=== PATIENT | male | born 1960 | race African-American/Black ===

== ENCOUNTER 2019-04-15 07:58 | Inpatient (IN) ==
[2019-04-05 12:38] LABS: Basophils # (Auto) 0 K/mcL (0.0-0.3); Basophils % (Auto) 0.6 % (0.0-2.0); Eosinophils # (Auto) 0.2 K/mcL (0.0-0.7); Eosinophils % (Auto) 2.1 % (0.0-7.0); Granulocytes % (Auto) 65.1 % (38.0-78.0); Hematocrit 41.5 % (41.0-55.0); Hemoglobin 13.2 g/dL (13.5-16.5); Lymphocytes # (Auto) 2.2 K/mcL (1.5-4.8); Lymphocytes % (Auto) 26.4 % (15.5-49.0); Mean Cell Volume 85.3 fL (80.0-100.0); Mean Corpuscular HGB Conc 31.8 g/dL (31.0-36.0); Mean Platelet Volume 8.9 fL (7.4-10.4); Monocytes # (Auto) 0.5 K/mcL (0.1-0.9); Monocytes % (Auto) 5.8 % (1.0-12.0); Platelet Count 303 K/mcL (140-440); RBC 4.87 M/mcL (4.50-5.90); Red Cell Distribution Width 13.8 % (11.5-14.5); WBC 8.4 K/mcL (4.5-11.0)
[2019-04-05 12:41] LABS: Blood Urea Nitrogen 23 mg/dl (6-20); Calcium 9.4 mg/dl (8.6-10.4); Carbon Dioxide 29 mmol/L (22-30); Chloride 99 mmol/L (96-108); Glomerular Filtration Rate 74; Glucose 126 mg/dL (70-105); Sodium 140 mmol/L (133-145)
[2019-04-05 13:25] LABS: Appearance,Urine CLEAR; Bilirubin,Urine NEG (NEG); Color,Urine YELLOW; Culture Indicated,Urine NO; Glucose,Urine (UA) NEGATIVE (NEG); Ketones,Urine NEG (NEG); Leukocyte Esterase,Urine NEG /uL (NEG); Nitrate,Urine NEG (NEG); Protein,Urine NEG (NEG); Urine Blood NEG mg/dL (<0.03); Urobilinogen,Urine NEG (NEG)
[~2019-04-15 07:58] MED LIST: 0.9 % SODIUM CHLORIDE 9 ML, KETOROLAC 30 MG, ROPIVACAINE HCL/PF 49.5 ML, EPINEPHrine 0.... IJ SCH; ceFAZolin 3 GM in DEXTROSE 5% IN WATER 50 ML IV SCH
[2019-04-15] MEDS ORDERED: GENTAMICIN SULFATE 800 MG/20 ML VIAL IR ONE (09:43)
[2019-04-15] MEDS ORDERED: DEXAMETHASONE 10 MG/ML VIAL IV ONE (12:05)
[2019-04-15] MEDS ORDERED: GLYCOPYRROLATE 0.2 MG/ML VIAL IV ONE (12:05)
[2019-04-15] MEDS ORDERED: PROPOFOL 200 MG/20 ML VIAL IV ONE (12:05)
[2019-04-15] MEDS ORDERED: ONDANSETRON 4 MG/2 ML VIAL IV ONE (12:05)
[2019-04-15] MEDS ORDERED: ROPIVACAINE HCL/PF 30 ML VIAL IJ ONE (12:05)
[2019-04-15] MEDS ORDERED: LIDOCAINE HCL/PF 100 MG/5 ML SYRINGE IV ONE (12:05)
[2019-04-15] MEDS ORDERED: MIDAZOLAM 5 MG/5 ML VIAL IV ONE (12:05)
[2019-04-15] MEDS ORDERED: KETAMINE 100 MG/ML ML IV ONE (12:05)
[2019-04-15] MEDS ORDERED: PHENYLEPHRINE 10 MG/ML VIAL IV ONE (12:05)
[2019-04-15] MEDS ORDERED: TRANEXAMIC ACID 1,000 MG/10 ML VIAL IV ONE ×2 (12:05→14:05)
[2019-04-15] MEDS ORDERED: FLEETS ADULT ENEMA PR PRN (14:05)
[2019-04-15] MEDS ORDERED: MAGNESIUM HYDROXIDE 30 ML ORAL.SUSP PO PRN (14:05)
[2019-04-15] MEDS ORDERED: BENZOCAINE/MENTHOL 1 LOZENGE PO PRN (14:05)
[2019-04-15] MEDS ORDERED: BISACODYL 10 MG SUPP.RECT PR PRN (14:05)
[2019-04-15] MEDS ORDERED: POLYETHYLENE GLYCOL 3350 17 GM PACKET PO PRN (14:05)
[2019-04-15] MEDS ORDERED: ONDANSETRON 4 MG/2 ML VIAL IV PRN ×2 (14:05→14:08)
[2019-04-15] MEDS ORDERED: MEPERIDINE 25 MG/ML SYRINGE IV PRN (14:08)
[2019-04-15] MEDS ORDERED: ACETAMINOPHEN 1,000 MG/100 ML BOTTLE IV ONE (14:08)
[2019-04-15] MEDS ORDERED: HYDROcodone/APAP 10/325MG TABLET PO PRN ×2 (14:08→18:33)
[2019-04-15] MEDS ORDERED: METHOCARBAMOL 1,000 MG/10 ML VIAL IV PRN (14:08)
[2019-04-15] MEDS ORDERED: ePHEDrine 50 MG/ML AMPUL IV PRN (14:08)
[2019-04-15] MEDS ORDERED: IPRATROPIUM/ALBUTEROL 3 ML AMPUL.NEB NEB PRN (14:08)
--- NOTE | 2019-04-15 14:14 | Brief Operative Note ---
Date of procedure: 04/15/19 Pre-op diagnosis: djd left knee Post-op diagnosis: same Procedure: L TKR Grafts/Implants: Yes (triathlon knee replacement) Anesthesia: ANNA Surgeon: Ry Jalloh Superintendent House: [facility] Estimated blood loss (cc): 100 Tourniquet Time (Minutes): 90 Specimens Removed/Pathology: none sent Condition: stable Disposition: PACU
[2019-04-15] MEDS ORDERED: LACTATED RINGERS 1,000 ML IV SCH (14:15)
[2019-04-15] MEDS: fentaNYL 100 MCG/2 ML VIAL IV PRN ×4 (15:17→15:25)
[2019-04-15] MEDS: 0.9 % SODIUM CHLORIDE 1,000 ML IV SCH (15:48)
--- NOTE | 2019-04-15 16:34 | XRay Report ---
HISTORY: Postop left knee replacement FINDINGS: Patient has a well positioned total knee prosthesis. There is no fracture. Lateral to the lateral joint compartment there is a soft tissue calcification which measures 6.6 mm. No donor site is seen. IMPRESSION: Well-positioned left knee prosthesis Interpreted and Authenticated by: Gordy Evangelista 04/15/19
[2019-04-15] MEDS: HYDROcodone/APAP 10/325MG TABLET PO PRN (17:58)
[2019-04-15] MEDS: ceFAZolin 1 GM VIAL IV SCH (18:50)
[2019-04-15] MEDS: CYCLOBENZAPRINE 10 MG TABLET PO PRN (19:03)
[2019-04-15] MEDS: ASPIRIN 81 MG TAB.CHEW PO SCH (20:51)
[2019-04-15] MEDS: DOCUSATE SODIUM 100 MG CAPSULE PO SCH (20:51)
[2019-04-15] MEDS ORDERED: SENNOSIDES 1 TABLET PO SCH (21:00)
[2019-04-15] MEDS: 0.9 % SODIUM CHLORIDE 10 ML SYRINGE IV SCH (23:31)
[2019-04-16] MEDS: HYDROcodone/APAP 10/325MG TABLET PO PRN ×4 (00:08→11:56)
[2019-04-16] MEDS: ceFAZolin 1 GM VIAL IV SCH (02:42)
[2019-04-16] MEDS: 0.9 % SODIUM CHLORIDE 1,000 ML IV SCH (04:09)
[2019-04-16 05:53] LABS: Basophils # (Auto) 0 K/mcL (0.0-0.3); Basophils % (Auto) 0.2 % (0.0-2.0); Eosinophils # (Auto) 0 K/mcL (0.0-0.7); Eosinophils % (Auto) 0.1 % (0.0-7.0); Hematocrit 37.6 % (41.0-55.0); Hemoglobin 12.2 g/dL (13.5-16.5); Lymphocytes # (Auto) 1.8 K/mcL (1.5-4.8); Mean Cell Volume 85.2 fL (80.0-100.0); Mean Corpuscular HGB Conc 32.6 g/dL (31.0-36.0); Mean Platelet Volume 8.9 fL (7.4-10.4); Monocytes # (Auto) 0.9 K/mcL (0.1-0.9); Monocytes % (Auto) 5.7 % (1.0-12.0); Platelet Count 290 K/mcL (140-440); RBC 4.41 M/mcL (4.50-5.90); Red Cell Distribution Width 13.5 % (11.5-14.5)
[2019-04-16] MEDS: 0.9 % SODIUM CHLORIDE 10 ML SYRINGE IV SCH (06:29)
[2019-04-16] MEDS: CYCLOBENZAPRINE 10 MG TABLET PO PRN (07:04)
[2019-04-16] MEDS ORDERED: FERROUS SULFATE 325 MG TABLET PO SCH (08:00)
[2019-04-16] MEDS: ASPIRIN 81 MG TAB.CHEW PO SCH (08:13)
[2019-04-16] MEDS: DOCUSATE SODIUM 100 MG CAPSULE PO SCH (08:14)
--- NOTE | 2019-04-16 08:21 | Discharge Summary ---
Providers - Providers Patient information: Note initiated : 04/16/19 at 8:18 am Service Date, if different from initiated Date: [] Patient: Daniel Dickson 58 y/o M admitted on 04/15/19 for Left Robotic Total Knee Arthroplasty. Chief Complaint: [] Discharge date: 04/16/19 Hospitalization Hospital course: Patient was admitted after surgery for post op pain control and PT. He was unhappy with this pain control but otherwise did very well and had no com plications. He will discharge today on POD 1. Discharge diagnosis: left total knee arthroplasty Exam - Exam Incision healing: Yes Weight bearing status: full Range of motion: 3-90 Ortho Discharge - TKA - Patient Instructions Diet: Regular Diet Activity: activity as tolerated Total Knee Protocol: For Total Knee: Start ROM LISA with stationary bike or rocking chair. Work on gaining full extension of knee. Posterior dislocation precautions provided. Hip abductor strengthening and gait training instructions provided. Apply Cryocuff as instructed. Dressing Care: May shower in 2 days - Follow Up Plan Disposition: Home, Self-Care Prognosis: Good Rehab Potential: Good I certify that the patient requires SNF services: No Overall status at discharge: patient is progressing back to baseline - Orders For Discharge Prescriptions: Aspirin [Aspirin EC] 325 mg PO BID #60 tablet. Cyclobenzaprine [Flexeril] 10 mg PO TID #60 tab HYDROcodone/APAP 10/325MG [[place]on 10-325Mg] 1 tab PO Q4H PRN #90 tab PRN Reason: Pain Pending Studies Resuscitation Status Full Code Diet Regular Diet Start Em April 15 Dinner Hydrocodone Bitart/Acetaminophen ([place] 10/325mg) 0 tab PO Q4HP PRN PRN Reason: PAIN LEVEL 3-6 Last Admin: 04/16/19 08:14 Dose: 2 tab Documented by: Admin: 04/16/19 04:09 Dose: 2 tab Documented by: Admin: 04/16/19 00:08 Dose: 2 tab Documented by: Admin: 04/15/19 17:58 Dose: 2 tab Documented by: NAVDEEP Ascorbic Acid (Vitamin C) 500 mg PO DAILY [facility] Last Admin: 04/16/19 08:13 Dose: 500 mg Documented by: URVASHI Aspirin (Aspirin) 81 mg PO BID [facility] Last Admin: 04/16/19 08:13 Dose: 81 mg Documented by: Admin: 04/15/19 20:51 Dose: 81 mg Documented by: DEVONWHSACHIN Cyclobenzaprine HCl (Flexeril) 10 mg PO DAILYP PRN PRN Reason: Muscle Spasm Last Admin: 04/16/19 07:04 Dose: 10 mg Documented by: Admin: 04/15/19 19:03 Dose: 10 mg Documented by: CMAWHEE Docusate Sodium (Colace) 100 mg PO BID [facility] Last Admin: 04/16/19 08:14 Dose: 100 mg Documented by: Admin: 04/15/19 20:51 Dose: 100 mg Documented by: CMAWHSACHIN Ferrous Sulfate (Ferrous Sulfate) 325 mg PO [facility] Last Admin: 04/16/19 08:13 Dose: 325 mg Documented by: MGARRED Hydrochlorothiazide (Oretic) 25 mg PO DAILY [facility] Last Admin: 04/16/19 08:13 Dose: 25 mg Documented by: MGARRED Iron Carb/Multivit/Peak/Folic Acid (Multivitamin W/Minerals) 1 tab PO DAILY [facility] Last Admin: 04/16/19 08:13 Dose: 1 tab Documented by: MGARRED Lisinopril (Zestril) 20 mg PO DAILY [facility] Last Admin: 04/16/19 08:14 Dose: 20 mg Documented by: MGARRED Magnesium Oxide (Magnesium Oxide) 400 mg PO DAILY [facility] Last Admin: 04/16/19 08:13 Dose: 400 mg Documented by: MGARRED Meloxicam (Mobic) 7.5 mg PO DAILY [facility] Last Admin: 04/16/19 08:13 Dose: 7.5 mg Documented by: MGARRED Morphine Sulfate (Morphine) 0 mg IV Q1HP PRN PRN Reason: PAIN LEVEL > 6 Last Admin: 04/15/19 16:54 Dose: 2 mg Documented by: FMF Potassium 99 Mg Tab 1 dose PO DAILY [facility] Last Admin: 04/16/19 08:16 Dose: Not Given Documented by: MGARRED Senna (Senokot) 2 tab PO HS [facility] Last Admin: 04/15/19 20:51 Dose: 2 tab Documented by: CMAWHSACHIN Sodium Chloride (Saline Flush) 10 ml IV Q8 [facility] Last Admin: 04/16/19 06:29 Dose: Not Given Documented by: Admin: 04/15/19 23:31 Dose: 10 ml Documented by: KAREN Vitamin D (Vitamin D3) 1,000 unit PO DAILY [facility] Last Admin: 04/16/19 08:13 Dose: 1,000 unit Documented by: URVASHI Shift Summary 04/16/19 03:55 Shift Summary by Nichole Garrido a/o x4, fww with gb/sba, s/p left tka, power wrap to left leg c/d/i, have been using cryo cuff on and off, cpm has been used most of shift, tolerating well up to bathroom x2, 800 cc urine output this shift, last bladder scan post void was 203 cc, had difficulty with pain control at beginning of shift, Flexeril seemed to help well with po pain med, ivf of ns at 75 cc/hr to left hand, vss. Initialized on 04/16/19 03:55 - END OF NOTE
--- NOTE | 2019-04-16 08:57 | Operative Note ---
DATE OF OPERATION: 04/15/2019 PREOPERATIVE DIAGNOSIS: Degenerative joint disease of the left knee. POSTOPERATIVE DIAGNOSIS: Degenerative joint disease of the left knee. OPERATION: Left total knee replacement with the Carson system. SURGEON: Ry Jalloh M.D. NURSERY WORKER: Stan Ramon PA-C. The PA's assistance was required for the safe and efficient completion of the entire case. This provider's expertise and technical skill were required throughout the case. The PA assisted with preoperative coordination, intraoperative retraction, wound closure, dressing and splint application, as well as postoperative documentation and care coordination. ANESTHESIA: General. FINANCE AND ADMINISTRATION MANAGER: Mario Jo M.D. TOURNIQUET TIME: 90 minutes. ESTIMATED BLOOD LOSS: 100 mL. SUMMARY OF PROCEDURE: General anesthesia was attained. The left leg was prepped and draped. The patient had significant varus deformity. He did not have a flexion contracture. A midline incision was made from the quadriceps to the tibial tubercle. We did a midvastus approach. The subcutaneous tissue was opened sharply. The medial retinaculum and quadriceps were identified. A mid vastus approach was done. The bone was exposed. The robot system was then used. The two checkpoints points were placed; one in the femur and one in the tibia. The menisci were resected. The ACL was released. Spurs were removed. Two stab incisions were made in the femur and two were made in the tibia. The skin and subcutaneous tissue was opened using blunt dissection. Two pins were placed into each bone, followed by the arrays. Using the Carson system, the hip center was located, as was the medial malleolus and the lateral malleolus. Forty points were then identified under the robot on the femur and forty points on the tibia. Sizing was done. The flexion-extension gaps were then done using the program on the Carson. The cuts were made using the Carson guide. The bone was removed. The femur sized to a 6. The tibia external rotation was adjusted using the Carson into external rotation, and this also was a 6. We did a measured resection on the patella, removing about 11 mm of bone, as well as the patient's accessory patella which was identifiable after inversion of the patella. The patella sized to a 35. The no-touch test with trial showed a lateral release was not needed. The bone surfaces were thoroughly irrigated with Irrisept and with jet lavage. The knee was injected throughout before implantation with a multimodal solution for postoperative analgesia. The components were then cemented in. Excess cement was removed. A cement gun was used. The cement was allowed to set up with the knee in full extension. We double- and triple-checked for any loose cement or cement outside of the prosthetics. The tourniquet was let down. All bleeding points were coagulated. The quadriceps and medial retinacular split were closed with Stratafix. The subcutaneous tissue was closed with interrupted buried 2-0 Monocryl. The skin was closed with Dura-Troncoso. A sterile compressive dressing was applied. The sponge and needle count was correct. The patient tolerated the procedure well and was taken to the recovery room in stable condition. TJF:[facility] Job ID: [id number] Doc ID: [id number] Ry Jalloh MD
[2019-04-16] MEDS ORDERED: HYDROCHLOROTHIAZIDE 25 MG TABLET PO SCH (09:00)
[2019-04-16] MEDS ORDERED: LISINOPRIL 20 MG TABLET PO SCH (09:00)
[2019-04-16] MEDS ORDERED: VITAMIN D3 1,000 UNIT TABLET PO SCH (09:00)
[2019-04-16] MEDS ORDERED: LISINOPRIL/HCTZ 10/12.5MG TABLET PO SCH (09:00)
[2019-04-16] MEDS ORDERED: LISINOPRIL 10 MG TABLET PO SCH (09:00)
[2019-04-16] MEDS ORDERED: MELOXICAM 7.5 MG TABLET PO SCH (09:00)
[2019-04-16] MEDS ORDERED: MAGNESIUM OXIDE 400 MG TABLET PO SCH (09:00)
[2019-04-16] MEDS ORDERED: HYDROCHLOROTHIAZIDE 12.5 MG CAPSULE PO SCH (09:00)
[2019-04-16] MEDS ORDERED: LOSARTAN/HCTZ 100/25 TABLET PO SCH (09:00)
[2019-04-16] MEDS ORDERED: MULTIVIT,THER IRON,CA,FA & MIN 1 TABLET PO SCH (09:00)
[2019-04-16] MEDS ORDERED: ASCORBIC ACID 500 MG TABLET PO SCH (09:00)
== END 2019-04-16 13:40 | disposition home or self-care (01) | DRG 470 ==
LOC: MEDSUR 07:58
PROVIDERS: ADMIT Orthopaedic Surgery Foot and Ankle Surgery; ATTEND Orthopaedic Surgery Foot and Ankle Surgery